=== PATIENT | male | born 1950 | race Caucasian/White ===

== ENCOUNTER 2017-08-30 06:24 | Outpatient (CLI) | payer OTHER ==
[~2017-08-30] VITALS: Ht 180.3 cm; Wt 81.8 kg
--- NOTE | ~2017-08-30 | HEMODYNAMI ---
PATIENT:RAMY FLETCHER MEDICAL RECORD: [id number] : 50 LOCATION:[facility] ADMISSION DATE: 08/30/17 Generatedon:08/30/20179:10 Patient name: RAMY FLETCHER Patient #: [id number] SSN: : [birth year] Date of study: 08/30/2017 Page: Of Hemodynamic Procedure Report Patient Data Patient Demographics Procedure consent was obtained First Name: RAMY Gender: Male Last Name: JUSTINE : 1950 Patient #: [id number] Age: 66 year(s) Race: Unknown Additional ID: [id number] Contact details Address: [address] [place] [address] State: [place] City: [facility] Zip code: [address] Past Medical History Allergies: No known allergies Admission Admission Data Admission Date: 08/30/2017 Admission Time: 6:24 Weight (lbs.): 187 Weight (kg.): 84.82 Lab Results Lab Result Date: 08/30/2017 Lab Result Time: 0:00 Biochemistry Name Units Result Min Max BUN mg/dl 17 --(---*)-- 7 18 Creatinine mg/dl 0.9 --(-*--)-- 0.6 1.3 CBC Name Units Result Min Max Hemoglobin g/dl 15.3 --(-*--)-- 13.5 17.5 Procedure Procedure Types Cath Procedure Diagnostic Procedure LHC LHC w/Coronaries Procedure Description Procedure Date Procedure Date: 08/30/2017 Procedure Start Time: 8:58 Procedure End Time: 9:10 Procedure Staff Name Function Nicho Núñez MD Performing Physician Jessica Havrey RT Monitor Juan Moser RT Scrub Jaydon Fish RN Nurse Procedure Data Cath Procedure Fluoroscopy Diagnostic fluoroscopy Total fluoroscopy Time: 2 time: 2 min min Diagnostic fluoroscopy Total fluoroscopy dose: 524 dose: 524 mGy mGy Contrast Material Contrast Material Type Amount (ml) Isovue 300 72 Entry Location Entry Primary Successful Side Size Upsize Upsize Entry Closure Zelaya ccessful Closure Location (Fr) 1 (Fr) 2 (Fr) Remarks Device Remarks Radial Right 6 Fr Mechanical artery Short Compression Estimated blood loss: 5 ml Diagnostic catheters Device Type Used For End Catheter Placement DIAGNOSTIC Edgar 110cm Procedure 5Fr catheter ([id number]) Procedure Complications No complications Procedure Medications Medication Administration Route Dosage 0.9% NaCl I.V. 100 ml/hr Oxygen etCO2 Nasal cannula 2 l/min Heparin Flush Bag added to field 2 bags (1000units/500ml NS) Lidocaine 2% added to field 20 Benadryl I.V. 50 mg Versed I.V. 1 mg Fentanyl I.V. 50 mcg Versed I.V. 1 mg Fentanyl I.V. 50 mcg Radial Cocktail added to field 1 syringe (Verapomil 2mg/Nitro 400mcg/Heparin 1500units) Hemodynamics Rest HGB: 15.3 (g/dl) Heart Rate: 61 (bpm) Pressure Samples Time Site Value (mmHg) Purpose Heart Use Rate(bpm) 9:01 LV 129/-15,1 Snapshot 76 Gradients Valve Time Site Site Mean SEP/DFP Peak To Heart Use 1 2 (mmHg) (sec/min) Peak Rate (mmHg) (bpm) Aortic 9:02 LV AO 106 Snapshots Pre Cath Intra NCS Post Cath Vital Signs Time Heart Resp SPO2 etCO2 NIBP (mmHg) Rhythm Pain Sedation Rate (ipm) (%) (mmHg) Status Level (bpm) 8:48:19 56 19 100 36.7 137/74(93) NSR 0 (11) 10(A) , No pain 8:53:02 55 14 99 35.9 119/69(88) NSR 0 (11) 10(A) , No pain 8:57:39 71 16 99 33.7 136/70(105) NSR 0 (11) 10(A) , No pain 9:02:13 91 16 97 35.9 124/86(113) NSR 0 (11) 10(A) , No pain 9:06:50 84 15 97 34.4 113/61(94) NSR 0 (11) 10(A) , No pain Medications Time Medication Route Dose Verified Delivered Reason Notes Ef fectiveness by by 8:48:21 0.9% NaCl I.V. 100 Jaydon Jaydon Per ml/hr Abe Fish physician RN RN 8:48:30 Oxygen etCO2 2 l/min Jaydon Jaydon Per Nasal Lorigan Lorigan physician cannula RN RN 8:48:46 Heparin Flush added 2 bags Jaydon Jaydon used for Bag to Lorigan Lorigan procedure (1000units/500ml field RN RN NS) 8:48:59 Lidocaine 2% added 20ml Jaydon Jaydon for local to vial Lorigan Lorigan anesthetic field RN RN 8:54:07 Benadryl I.V. 50 mg Jaydon Jaydon Per Lorigan Lorigan physician RN RN 8:54:16 Versed I.V. 1 mg Jaydon Jaydon for Lorigan Lorigan sedation RN RN 8:54:24 Fentanyl I.V. 50 mcg Jaydon Jaydon for Lorigan Lorigan sedation RN RN 8:57:01 Versed I.V. 1 mg Jaydon Jaydon for Lorigan Lorigan sedation RN RN 8:57:06 Fentanyl I.V. 50 mcg Jaydon Jaydon for Lorigan Lorigan sedation RN RN 8:57:50 Radial Cocktail added 1 Jaydon Jaydon used for (Verapomil to syringe Lorigan Lorigan procedure 2mg/Nitro field RN RN 400mcg/Heparin 1500units) Procedure Log Time Note 8:31:08 aJydon Fish RN sent for patient. Start room use. 8:31:09 Time tracking: Regular hours (M-F 7:00 - 5:00) 8:31:12 Plan of Care:Hemodynamics will remain stable., Cardiac rhythm will remain stable., Comfort level will be maintained., Respiratory function will remain adequate., Patient/ family verbilizes understanding of procedure., Procedure tolerated without complication., Recovers from procedure without complications.. 8:31:14 Signed procedure consent form obtained from patient. 8:31:22 H&P Date Dictated: 08/10/2017 Within 30 days and on chart., H&P Addendum completed by physician on day of procedure. (MUST COMPLETE FOR ALL OUTPATIENTS). 8:31:31 Patient allergic to No known allergies 8:33:13 Lab Result : BUN 17 mg/dl 8:33:13 Lab Result : Creatinine 0.9 mg/dl 8:33:13 Lab Result : Hemoglobin 15.3 g/dl 8:34:13 Patient received from Pre/Post Procedure Room to CCL 1 Alert and oriented. Tansferred to table in Supine position. 8:34:14 Warm blankets applied, and hemal hugger turned on for patient comfort. 8:34:14 Correct patient and procedure confirmed by team. 8:34:15 ECG and BP/O2 sat monitors applied to patient. 8:47:27 Vital chart was started 8:47:29 Baseline sample Acquired. 8:47:38 Rhythm: sinus bradycardia 8:47:39 Full Disclosure recording started 8:47:41 Pre-procedure instructions explained to patient. 8:47:41 Pre-procedure instructions explained to patient. 8:47:43 Family in patients room. 8:47:45 Patient NPO since Midnight. 8:47:46 Is the patient allergic to Iodine/contrast media? No. 8:47:47 Is patient on blood thinner?No 8:47:49 Patient diabetic? No. 8:47:52 Previous problem with sedation/anesthesia? No ? 8:47:53 Snore? Yes 8:47:54 Sleep apnea? No 8:47:59 Deviated septum? No 8:48:00 Opens mouth fully? Yes 8:48:01 Sticks out tongue? Yes 8:48:03 Airway obstruction? No ? 8:48:05 Dentures? No ? 8:48:07 Modified Lyle's test Ulnar < 7 seconds 8:48:09 Patient pain scale 0/10 ?. 8:48:15 IV patent on arrival in left forearm with 0.9% NaCl at [facility]. 8:48:18 Lab results completed and on chart. 8:48:21 0.9% NaCl 100 ml/hr I.V. was administered by Jaydon Fish RN; Per physician; 8:48:22 Right Radial & Right Groin area was prepped with chlora-prep and draped in sterile fashion 8:48:23 Alarms reviewed by R. N. 8:48:23 Sharps counted by scrub and verified by R.N. 8:48:28 Use device set Radial Dx or PCI 8:48:29 ACIST Syringe (68366) opened to sterile field. 8:48:30 Oxygen 2 l/min etCO2 Nasal cannula was administered by Jaydon Fish RN; Per physician; 8:48:31 ACIST Hand Control (44757) opened to sterile field. 8:48:31 ACIST Manifold (64206) opened to sterile field. 8:48:32 Tegaderm 4 x 4 (1626W) opened to sterile field. 8:48:34 Bag Decanter (2002S) opened to sterile field. 8:48:35 Medline Cath Pack ([id number]) opened to sterile field. 8:48:35 DIAGNOSTIC WIRE .035 260cm J wire (030678) opened to sterile field. 8:48:37 MBrace Wrist Support ([id number]) opened to sterile field. 8:48:46 Heparin Flush Bag (1000units/500ml NS) 2 bags added to field was administered by Jaydon Fish RN; used for procedure; 8:48:59 Lidocaine 2% 20ml vial added to field was administered by Jaydon Fish RN; for local anesthetic; 8:51:28 Patient Weight : 187 lbs 8:53:04 --------ALL STOP TIME OUT------ 8:53:04 Final Timeout: patient, procedure, and site verified with staff and physician. All members of the team are in agreement. 8:53:06 Right Radial & Right Groin site verified by team. 8:53:09 Physical assessment completed. ASA score P 2 - A patient with mild systemic disease as per Nicho Núñez MD. 8:53:14 Sedation plan: IV Moderate Sedation Medication:Versed, Fentanyl 8:54:07 Benadryl 50 mg I.V. was administered by Jaydon Fish RN; Per physician; 8:54:16 Versed 1 mg I.V. was administered by Jaydon Fish RN; for sedation; 8:54:24 Fentanyl 50 mcg I.V. was administered by Jaydon Fish RN; for sedation; 8:57:01 Versed 1 mg I.V. was administered by Jaydon Fish RN; for sedation; 8:57:06 Fentanyl 50 mcg I.V. was administered by Jaydon Fish RN; for sedation; 8:57:12 Zero performed for pressure channel P1 8:57:31 Procedure started. 8:57:50 Radial Cocktail (Verapomil 2mg/Nitro 400mcg/Heparin 1500units) 1 syringe added to field was administered by Jaydon Fish RN; used for procedure; 8:58:00 Local anesthetic to right radial artery with Lidocaine 2% by Nicho Núñez MD.INITIAL ACCESS ONLY 8:59:20 SHEATH 6Fr Prelude Radial ([id number]) opened to sterile field. 8:59:39 A 6 Fr Short sheath was inserted into the Right Radial artery 8:59:57 A DIAGNOSTIC Edgar 110cm 5Fr catheter ([id number]) was advanced over the wire and used for Procedure. 9:00:51 LV gram done using LANDRUM 9:00:53 Injector settings: Ml/sec: 7, Volume: 15, 9:01:51 LV hemodynamics recorded. 9:02:28 EF : 55 % 9:03:33 LCA angiography performed. 9:04:33 RCA angiography performed. 9:05:56 Catheter removed. 9:06:16 TR BAND Standard ([id number]) opened to sterile field. 9:06:31 Procedure ended.(Physican Out) 9:06:36 Sheath removed intact; hemostasis achieved with Mechanical Compression to the Right Radial artery. 9:07:10 Fluoroscopy time 02.00 minutes. 9:07:17 Fluoroscopy dose: 524 mGy 9:07:17 Flurop Dose total: 524 9:07:20 Contrast amount:Isovue 300 72ml. 9:07:21 Sharps counted by scrub and verified by R.N. 9:07:23 TR band inflated with 11cc of air. 9:07:32 Post-procedure physical assessment completed. ASA score P 2 - A patient with mild systemic disease as per Nicho Núñez MD. 9:07:36 Post procedure rhythm: sinus rhythm 9:07:38 Estimated blood loss: 5 ml 9:07:39 Post procedure instruction explained to patient.Patient verbalizes understanding. 9:07:40 Patient needs reinforcement of post procedure teaching. 9:08:44 Procedure and supply charges have been captured, reviewed, submitted and are correct. 9:08:48 Procedure Complication : No complications 9:09:52 Vital chart was stopped 9:09:52 See physician's report for complete and final results. 9:09:55 Report given to Pre/Post Procedure Room. 9:09:58 Patient transfered to Pre/Post Procedure Room with Bed. 9:10:00 Procedure ended. 9:10:00 Full Disclosure recording stopped 9:10:04 End room use (Document Last) Device Usage Item Name Manufacture Quantity Catalog Number Hospital Part Current M inimal Lot# / Charge Number Stock Stock Serial# Code ACIST Syringe Acist 1 88943 [id number] 427163 409005 2 0 (92011) [employer] ACIST Hand Acist 1 25753 413471 537427 640851 5 Control (37856) [employer] ACIST Manifold Acist 1 93451 361857 626780 630073 5 (48034) [employer] Tegaderm 4 x 4 3M 1 1626W 972609 026669 381341 5 (1626W) Bag Decanter Microtek 1 2002S 262390 78915 797390 5 (2002S) Medical Inc. Medline Cath Cardinal 1 [id number] 224753 03622 708929 5 Pack Health ([id number]) DIAGNOSTIC WIRE St Bal 1 305852 017456 381765 699759 3 0 .035 260cm J wire (796939) MBrace Wrist Advanced 1 140-0250-00 382324 69527 265221 5 Support Vascular ([id number]) Dynamics SHEATH 6Fr Merit 1 [id number] 869070 782744 162753 5 Prelude Radial Medical ([id number]) DIAGNOSTIC Terumo 1 40-1384 294571 986936 797847 5 Edgar 110cm 5Fr catheter (045476) TR BAND Terumo 1 [id number] 668921 663071 830061 4 0 Standard ([id number]) Signature Audit [place] Stage Time Signature Unsigned Intra-Procedure 08/30/2017 Jessica Harvey 9:10:29 AM RT(R) Signatures Monitor : Jessica Harvey Signature : RT Date : Time : [facility] [address] [place] [address]
[~2017-08-30 06:24] MED LIST: HYDROCODONE-APA1 TAB PO
[2017-08-30] MEDS ORDERED: BAYER CHEWABLE81 MG PO (07:06)
[2017-08-30 07:08] VITALS: BP 119/69; Ht 180.3 cm; Wt 81.8 kg
[2017-08-30 07:20] LABS: BASOPHILS 0.4 % (0-2); EOSINOPHILS 4.4 % (0-7); HEMATOCRIT 43.9 % (42.0-54.0); HEMOGLOBIN 15.3 g/dL (13.5-17.5); IMMATURE GRANULOCYTES 0.2 % (0-5); MCH 33.2 pg (26.0-34.0); MCHC 34.9 g/dL (31.0-37.0); MCV 95.2 fL (80.0-100.0); MEAN PLATELET VOLUME 9.7 fL (7.4-10.4); MONOCYTES 7.8 % (2-11); NEUTROPHILS 61.2 % (40-80); PLATELET COUNT 252 10x3/uL (130-400); RBC 4.61 10x6/uL (4.20-6.10); RDW 12.4 % (11.5-14.5); WBC 4.7 10x3/uL (4.8-10.8)
[2017-08-30 07:36] LABS: CALC OSMOLALITY 283 mosm/kg (275-300); CALCIUM 8.9 mg/dL (8.5-10.1); CARBON DIOXIDE 25.8 mmol/L (21.0-32.0); CHLORIDE - SERUM 105 mmol/L (98-107); CREATININE - SERUM 0.9 mg/dL (0.6-1.3); GLUCOSE 88 mg/dL (74-106); POTASSIUM - SERUM 4.4 mmol/L (3.5-5.1); SODIUM 142 mmol/L (136-145); UREA NITROGEN 17 mg/dL (7-18); eGFR NON AFRICAN AMERICAN 90 mL/min (90-120)
== END 2017-08-30 12:00 | disposition home or self-care (01) ==
LOC: D.CATH 06:24
PROVIDERS: Internal Medicine Cardiovascular Disease
DX: I20.9 Angina pectoris, unspecified (principal); Z01.812 Encounter for preprocedural laboratory examination

== ENCOUNTER 2019-07-14 12:03 | Day surgery (SDC) | payer MEDICARE, OTHER ==
[~2019-07-14] VITALS: Ht 180.3 cm; Wt 68.2 kg
[~2019-07-14 12:03] MED LIST changes: +BAYER CHEWABLE81 MG PO
[2019-07-14 12:21] LABS: BASOPHILS 0.4 % (0-2); EOSINOPHILS 2.1 % (0-7); HEMATOCRIT 41.2 % (42.0-54.0); HEMOGLOBIN 14.3 g/dL (13.5-17.5); IMMATURE GRANULOCYTES 0.4 % (0-5); LYMPHOCYTES 19.7 % (15-50); MCH 33.3 pg (26.0-34.0); MCHC 34.7 g/dL (31.0-37.0); MEAN PLATELET VOLUME 8.8 fL (7.4-10.4); MONOCYTES 5.8 % (2-11); NEUTROPHILS 71.6 % (40-80); PLATELET COUNT 228 10x3/uL (130-400); RBC 4.29 10x6/uL (4.20-6.10); WBC 5.7 10x3/uL (4.8-10.8)
[2019-07-14 12:33] LABS: CALC OSMOLALITY 278 mosm/kg (275-300); CALCIUM 8.9 mg/dL (8.5-10.1); CHLORIDE - SERUM 105 mmol/L (98-107); CREATININE - SERUM 0.9 mg/dL (0.6-1.3); GLUCOSE 88 mg/dL (74-106); POTASSIUM - SERUM 4.3 mmol/L (3.5-5.1); SODIUM 139 mmol/L (136-145); UREA NITROGEN 17 mg/dL (7-18); eGFR NON AFRICAN AMERICAN 89 mL/min (90-120)
[2019-07-14] MEDS ORDERED: THEREMS-M1 TAB PO (12:54)
[2019-07-14] MEDS ORDERED: CETIRIZINE HCL5 M1 PO (12:54)
[2019-07-14] MEDS ORDERED: METAMUCIL PACKE1 PKT PO (12:54)
[2019-07-14] MEDS ORDERED: [UNRECOGNIZED DRUG - OTHER] (12:55)
[2019-07-14] MEDS ORDERED: FISH OIL 1,0001 CA1 PO (12:55)
[2019-07-14 13:00] VITALS: BP 120/69; Ht 180.3 cm; Wt 68.2 kg
--- NOTE | 2019-07-14 15:11 | NUR ---
1451 VSS. IV DC'D. CATHETER TIP INTACT. NO BLEEDING AT SITE. BANDAID APPLIED.
--- NOTE | 2019-07-16 17:11 | OP ---
PATIENT NAME: RAMY FLETCHER MEDICAL RECORD: [id number] :50 LOCATION:[facility] ADMISSION DATE: SURGEON: ALONSO LONG DO DATE OF OPERATION: 07/14/2019 PROCEDURE: EGD with dilation and biopsies. INDICATIONS FOR PROCEDURE: Abnormal barium swallow and dysphagia. SCOPE: Olympus video gastroscope. MEDICATIONS: Propofol 240 mg IV per anesthesia. ESTIMATED BLOOD LOSS: Minimal. COMPLICATIONS: None. FINDINGS: Informed consent was given. The patient was made comfortable with the above medication. After reaching an adequate level of sedation by slow IV push, the patient was placed on his left side. The endoscope was advanced under direct visualization through the mouth to the second portion of the duodenum. In the upper esophagus involving the upper esophageal sphincter, there seemed to be some resistance and stenosis with passage of the endoscope into the esophagus. Once the esophagus Once the endoscope was passed into the sphincter and into the stomach, a Savary wire was placed through the endoscope and the endoscope was withdrawn from the patient. The Savary dilators were used to a maximum diameter of 12 mm successfully. The endoscope was placed back down through the upper esophageal sphincter into the esophagus through the remainder of the examination. In the proximal esophagus, there was a single esophageal plaque. Cold forceps, biopsies were taken to remove the entirety of that tissue for histopathology review. The middle and distal esophagus appeared normal. At the GE junction, there were minor changes consistent with LA class A reflux-induced esophagitis. The endoscope was advanced beyond the GE junction into the stomach and retroflexed to view the cardia, where a small sliding hiatal hernia was present. The fundus and proximal body of the stomach appeared normal. In the distal body, antrum, and prepyloric region, there were scattered areas of erythema and granularity consistent with mild gastritis. Cold forceps, biopsies were taken from the antrum to submit for histopathology and to rule out the presence of H. pylori. The endoscope was advanced beyond the pylorus into the duodenum, which appeared normal to the second portion. The endoscope was then withdrawn from the patient. The patient tolerated the procedure well and there were no complications. IMPRESSION: 1. 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 2. Upper esophageal plaque status post cold forceps removal. 3. LA class A reflux-induced esophagitis. 4. Mild gastritis. PLAN AND RECOMMENDATIONS: 1. Discharge home when recovery parameters are met. 2. Follow up biopsy specimen results. 3. GERD diet and reflux precautions. 4. Continue current medications. OPERATIVE REPORT [id number] RAMY FLETCHER 5. Omeprazole 40 mg daily times x60 days. 6. Modified barium swallow with speech therapy regarding the oropharyngeal dysphagia. 7. Follow up in GI clinic in 1 month to review symptoms. 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
== END 2019-07-14 15:08 | disposition home or self-care (01) ==
LOC: D.OPS 12:03
PROVIDERS: Anesthesiology; ATTEND Internal Medicine Gastroenterology
DX: R13.10 Dysphagia, unspecified (principal); R94.8 Abnormal results of function studies of other organs and systems; K21.0 Gastro-esophageal reflux disease with esophagitis; K22.2 Esophageal obstruction

== ENCOUNTER → 2019-07-16 12:59 | Outpatient (CLI) | payer MEDICARE, OTHER ==
[2019-07-14 13:00] VITALS: BMI 20.9
[~2019-07-16 12:59] MED LIST changes: +CETIRIZINE HCL5 M1 PO; +FISH OIL 1,0001 CA1 PO; +METAMUCIL PACKE1 PKT PO; +THEREMS-M1 TAB PO; +[UNRECOGNIZED DRUG - OTHER]
== END | disposition home or self-care (01) ==
LOC: D.RAD 12:59
PROVIDERS: ATTEND Internal Medicine Gastroenterology
DX: R13.12 Dysphagia, oropharyngeal phase (principal)

== ENCOUNTER → 2019-10-21 12:53 | Outpatient (CLI) | payer MEDICARE, OTHER ==
[2019-07-14 13:00] VITALS: BMI 20.9
== END | disposition home or self-care (01) ==
LOC: D.RAD 12:53
PROVIDERS: ATTEND Internal Medicine Gastroenterology
DX: R13.12 Dysphagia, oropharyngeal phase (principal)